=== PATIENT | male | born 1945 | race Caucasian/White ===

== ENCOUNTER 2017-10-31 02:51 | Emergency (ER) | payer MEDICARE ==
[2017-02-27 08:41] VITALS: Ht 165.1 cm; Wt 100.0 kg
[~2017-10-31] VITALS: Ht 165.1 cm; Wt 100.0 kg
[~2017-10-31 02:51] MED LIST changes: -CHOL500045 PO; -CYCL10TA29 PO; -LINA290C PO; -MORP-181 PO; -PRAM1.5T23 PO
--- NOTE | 2017-10-31 02:59 | ER Report ---
History and Physical Time Seen By MD: 02:59 (GUERO COBURN DO) HPI/ROS CHIEF COMPLAINT: Back pain HISTORY OF PRESENT ILLNESS: 71-year-old male presents to the ER complaining of severe back pain. Patient normally has chronic back pain. He has a history of discitis from March 2017. His transfer down [facility]. Patient was done at [facility] yesterday with anticipated back surgery. He has previous disc collapse and discitis with spinal stenosis. 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 They reported that his INR was not low enough to proceed with surgery. He shows laboratory work with an INR of 1.4 and a PT 16.6 He was discharged to come back home and returned on for surgery. Patient notes increasing back pain for one day. He is unable to move. He is taking his normal MS Contin and Percocet for breakthrough pain. He is unable to reduce his pain beyond 10/10. It's no fever or chills. This is very similar to the previous presentation when he had discitis back in March 2017. Patient denies dysuria, productive cough or dysuria. Patient notes no incontinence. He notes weakness in his legs that is chronic. He notes no worsening of his symptoms in the lower externally. He has contact information for brain and spine surgery at [facility] Dr Nathan Rucker/ Francia Levy nurse practitioner [phone] REVIEW OF SYSTEMS: Respiratory: No cough, no dyspnea. Cardiovascular: No chest pain, no palpitations. Gastrointestinal: No vomiting, no abdominal pain. Musculoskeletal: As above (GUERO COBURN DO) Allergies: Coded Allergies: hydromorphone (Verified Adverse Reaction, Intermediate, AGGRESSION, ALTERED MENTAL STATUS, 03/07/17) Home Meds Reported Medications Cholecalciferol (Vitamin D3) (VITAMIN D) 5,000 Unit Tablet, 5000 UNIT PO QDAY 10/31/17 Oxycodone Hcl/Acetaminophen (PERCOCET 5-325 MG TABLET) 1 Each Tablet, 1 EACH PO QID Y for PAIN, TAB 10/31/17 Morphine Sulfate (MS CONTIN) 15 Mg Tablet.er, 15 MG PO BID 10/31/17 Pramipexole Di-Hcl (MIRAPEX) 1.5 Mg Tablet, 1.5 MG PO QDAY 10/31/17 Linaclotide (LINZESS) 290 Mcg Capsule, 290 MCG PO QDAY, CAPSULE 10/31/17 Cyclobenzaprine Hcl (CYCLOBENZAPRINE HCL) 10 Mg Tablet, 5 MG PO TID Y for SPASMS , #9 TAB 10/31/17 Levothyroxine Sodium (LEVOTHYROXINE SODIUM) 100 Mcg Tablet, 200 MCG PO QDAY, TAB 02/28/17 Trazodone Hcl (TRAZODONE HCL) 50 Mg Tablet, 50-100 MG PO QHS Y for SLEEP 02/27/17 Gabapentin (GABAPENTIN) 300 Mg Capsule, 300 MG PO QDAY, CAPSULE 02/27/17 [place]-3 Fatty Acids (FISH OIL) 300 Mg Capsule, 300 MG PO every 3rd day, CAPSULE 07/17/16 Tamsulosin Hcl (FLOMAX) 0.4 Mg Cap.er.24h, 0.4 MG PO DAILY, CAP 12/01/15 Vit B1 Mn/B2/B3/B5/B6/B12/C/Fa (B COMPLEX WITH VITAMIN C TAB) 1 Each Tablet, 1 TAB PO DAILY, #90 10/21/14 Losartan/Hydrochlorothiazide (LOSARTAN-HCTZ 100-25 MG TAB) 1 Each Tablet, 1 TAB PO DAILY, #90 08/26/14 Discontinued Reported Medications Amoxicillin/Potassium Clav (AUGMENTIN 500-125 TABLET) 1 Each Tablet, 1 TAB PO Q8H for 7 Days, #21 TAB 03/04/17 Diclofenac Sodium 1% Gel (VOLTAREN 1% GEL) 100 Gm Gel..gram. 02/28/17 Cholecalciferol (Vitamin D3) (VITAMIN D3) 400 Unit Tablet, 400 UNIT PO DAILY 02/28/17 Warfarin Sodium (WARFARIN SODIUM) 5 Mg Tablet, 7.5 MG PO 3 days a week, TAB 02/28/17 Potassium Chloride (POTASSIUM CHLORIDE) 10 Meq Capsule.er, 10 MEQ PO DAILY 02/28/17 Oxycodone Hcl/Acetaminophen (PERCOCET 7.5-325 MG TABLET) 1 Each Tablet, 1 EACH PO Q6H Y for pain, TAB 02/28/17 Terbinafine Hcl (LAMISIL) 250 Mg Tablet, 250 MG PO DAILY PATIENT TO TAKE FOR 3 MONTHS 02/27/17 Vitamin A (VITAMIN A) 8,000 Unit Capsule, PO, CAPSULE 07/17/16 Pramipexole Di-Hcl (PRAMIPEXOLE DIHYDROCHLORIDE) 1.5 Mg Tablet, 2 TAB PO DAILY, #180 08/26/14 Warfarin Sodium (COUMADIN) 5 Mg Tablet, 5 MG PO 4 days a week 07/24/14 Past Medical/Surgical History PAST MEDICAL AND SURGICAL HISTORY The patient has an extensive past medical history including secondary polycythemia, DVT of the right leg, obesity, hypertension, hypogonadism, sleep apnea, peripheral neuropathy, type 2 diabetes, hypercholesterolemia, metabolic syndrome, restless leg syndrome, osteoarthritis with bilateral knee replacements , cataracts with lens replacement, hypothyroidism, severe infection with diskitis and possibly osteomyelitis in 2017. (GUERO COBURN DO) Reviewed Nurses Notes: Yes Old Medical Records Reviewed: Yes (GUERO COBURN DO) Hx Smoking: No Exposure to Second Hand Smoke?: No Hx Substance Use Disorder: No Hx Alcohol Use: Yes (rare) (GUERO COBURN DO) Constitutional Vital Sign - Last 24 Hours 10/31/17 10/31/17 10/31/17 10/31/17 02:56 03:00 03:05 03:10 Temp 97.1 Pulse 82 82 79 76 Resp 22 B/P (MAP) 138/68 Pulse Ox 96 91 97 96 O2 Delivery Room Air 10/31/17 10/31/17 10/31/17 10/31/17 03:15 03:20 03:25 03:30 Pulse ??? 73 66 70 B/P (MAP) 138/68 (91) Pulse Ox 93 94 92 96 10/31/17 10/31/17 10/31/17 10/31/17 03:35 03:40 03:45 03:50 Pulse 69 ??? 62 57 Pulse Ox 97 97 96 98 10/31/17 10/31/17 10/31/17 10/31/17 03:51 03:55 04:00 04:05 Pulse 73 ??? 65 B/P (MAP) 176/81 (112) Pulse Ox 99 100 100 O2 Flow Rate 2.0 10/31/17 10/31/17 10/31/17 10/31/17 04:05 04:10 04:15 04:20 Pulse 59 66 65 Pulse Ox 100 99 99 O2 Flow Rate 4.0 10/31/17 10/31/17 10/31/17 10/31/17 04:25 04:30 04:35 04:40 Pulse 62 ??? 66 60 B/P (MAP) 129/66 (87) Pulse Ox 100 99 99 99 10/31/17 10/31/17 10/31/17 10/31/17 04:45 04:50 04:55 05:00 Pulse 58 63 75 ??? B/P (MAP) 164/86 (112) Pulse Ox 99 99 100 100 10/31/17 10/31/17 10/31/17 10/31/17 05:15 05:30 05:45 06:00 Pulse 64 ??? 82 ??? B/P (MAP) 136/70 (92) 187/97 (127) Pulse Ox 92 98 98 96 10/31/17 10/31/17 10/31/17 10/31/17 06:15 06:20 06:30 06:35 Pulse 67 76 68 B/P (MAP) 156/85 (108) Pulse Ox 97 99 83 10/31/17 10/31/17 10/31/17 10/31/17 07:51 07:56 08:00 08:11 Pulse 63 B/P (MAP) 153/79 (103) 140/67 (91) Pulse Ox 98 98 10/31/17 10/31/17 10/31/17 10/31/17 08:26 08:30 08:41 08:56 Pulse 56 63 55 B/P (MAP) 132/61 (84) Pulse Ox 97 98 98 (YURIY IBRAHIM MD) Physical Exam General Appearance: The patient is alert, has no immediate need for airway protection and no current signs of toxicity. Moderate distress HEENT: Pupils equal and round no injection. Oropharynx without redness or exudate, mucous. Membranes are moist Respiratory: Chest is non tender, lungs are clear to auscultation. No wheezing or rails Cardiac: regular rate and rhythm Gastrointestinal: Abdomen is soft and non tender, no masses, bowel sounds normal. Musculoskeletal: Neck: Neck is supple and non tender. Back: There is no fluctuance, erythema or warmth. There is moderate tenderness in the midline at approximately T12. There are surgical echevarria on the patient's back from his previous visit with anticipated surgery Extremities have full range of motion and are non tender. No edema, no calf tenderness Skin: No rashes or lesions. DIFFERENTIAL DIAGNOSIS: After history and physical exam differential diagnosis was considered for back pain including but not limited to muscular pain, herniated disc, spine fracture, discitis, intra-abdominal causes and urinary tract infection. (GUERO COBURN DO) Medical Decision Making Data Points Result Diagram: 10/31/1731110/31/17311 Laboratory Hematology Test 10/31/17 03:12 10/31/17 05:07 Red Blood Count 5.51 M/uL (4.00-5.60) Mean Corpuscular Volume 82.1 fL (80.0-96.0) Mean Corpuscular Hemoglobin 27.7 pg (26.0-33.0) Mean Corpuscular Hemoglobin Concent 33.8 g/dL (32.0-36.0) Red Cell Distribution Width 16.3 % (11.5-14.5) Mean Platelet Volume 8.6 fL (7.2-11.1) Neutrophils (%) (Auto) 80.7 % (39.4-72.5) Lymphocytes (%) (Auto) 10.6 % (17.6-49.6) Monocytes (%) (Auto) 7.1 % (4.1-12.4) Eosinophils (%) (Auto) 0.8 % (0.4-6.7) Basophils (%) (Auto) 0.8 % (0.3-1.4) Nucleated RBC Relative Count (auto) 0.0 /100WBC Neutrophils # (Auto) 8.0 K/uL (2.0-7.4) Lymphocytes # (Auto) 1.1 K/uL (1.3-3.6) Monocytes # (Auto) 0.7 K/uL (0.3-1.0) Eosinophils # (Auto) 0.1 K/uL (0.0-0.5) Basophils # (Auto) 0.1 K/uL (0.0-0.1) Nucleated RBC Absolute Count (auto) 0.00 K/uL Erythrocyte Sedimentation Rate 31 mm/HOUR (0-20) Prothrombin Time 15.0 seconds (12.0-14.4) Prothromb Time International Ratio 1.17 Sodium Level 136 mmol/L (137-145) Potassium Level 3.4 mmol/L (3.5-5.0) Chloride Level 100 mmol/L (98-107) Carbon Dioxide Level 24 mmol/L (22-30) Blood Urea Nitrogen 13 mg/dl (9-21) Creatinine 0.90 mg/dl (0.66-1.25) Glomerular Filtration Rate Calc > 60.0 Random Glucose 115 mg/dl (75-110) Calcium Level 9.4 mg/dl (8.4-10.2) Total Bilirubin 1.4 mg/dl (0.2-1.3) Aspartate Amino Transf (AST/SGOT) 21 U/L (0-35) Alanine Aminotransferase (ALT/SGPT) 26 U/L (0-56) Alkaline Phosphatase 94 U/L (0-126) C-Reactive Protein 6.0 mg/dl (<1.0) Total Protein 7.8 gm/dl (6.3-8.2) Albumin 4.1 g/dl (3.5-5.0) Urine Color Yellow Urine Clarity Clear Urine pH 5.0 pH (4.8-9.5) Urine Specific [place] 1.013 Urine Protein Negative mg/dL (NEGATIVE) Urine Glucose (UA) Negative mg/dL (NEGATIVE) Urine Ketones Negative mg/dL (NEGATIVE) Urine Blood Negative (NEGATIVE) Urine Nitrite Negative (NEGATIVE) Urine Bilirubin Negative (NEGATIVE) Urine Urobilinogen Negative mg/dL (0.2-1.9) Urine Leukocyte Esterase Negative (NEGATIVE) Urine RBC None /HPF (0-2/HPF) Urine WBC 2 /HPF (0-5/HPF) Urine Squamous Epithelial Cells None /LPF (</=FEW) Urine Bacteria Negative /HPF (NONE-FEW) Urine Mucus Few /HPF (NONE-FEW) Chemistry Test 10/31/17 03:12 10/31/17 05:07 White Blood Count 9.9 k/uL (4.5-11.0) Red Blood Count 5.51 M/uL (4.00-5.60) Hemoglobin 15.3 g/dL (14.0-18.0) Hematocrit 45.2 % (42.0-52.0) Mean Corpuscular Volume 82.1 fL (80.0-96.0) Mean Corpuscular Hemoglobin 27.7 pg (26.0-33.0) Mean Corpuscular Hemoglobin Concent 33.8 g/dL (32.0-36.0) Red Cell Distribution Width 16.3 % (11.5-14.5) Platelet Count 308 K/uL (150-450) Mean Platelet Volume 8.6 fL (7.2-11.1) Neutrophils (%) (Auto) 80.7 % (39.4-72.5) Lymphocytes (%) (Auto) 10.6 % (17.6-49.6) Monocytes (%) (Auto) 7.1 % (4.1-12.4) Eosinophils (%) (Auto) 0.8 % (0.4-6.7) Basophils (%) (Auto) 0.8 % (0.3-1.4) Nucleated RBC Relative Count (auto) 0.0 /100WBC Neutrophils # (Auto) 8.0 K/uL (2.0-7.4) Lymphocytes # (Auto) 1.1 K/uL (1.3-3.6) Monocytes # (Auto) 0.7 K/uL (0.3-1.0) Eosinophils # (Auto) 0.1 K/uL (0.0-0.5) Basophils # (Auto) 0.1 K/uL (0.0-0.1) Nucleated RBC Absolute Count (auto) 0.00 K/uL Erythrocyte Sedimentation Rate 31 mm/HOUR (0-20) Prothrombin Time 15.0 seconds (12.0-14.4) Prothromb Time International Ratio 1.17 Glomerular Filtration Rate Calc > 60.0 Calcium Level 9.4 mg/dl (8.4-10.2) Total Bilirubin 1.4 mg/dl (0.2-1.3) Aspartate Amino Transf (AST/SGOT) 21 U/L (0-35) Alanine Aminotransferase (ALT/SGPT) 26 U/L (0-56) Alkaline Phosphatase 94 U/L (0-126) C-Reactive Protein 6.0 mg/dl (<1.0) Total Protein 7.8 gm/dl (6.3-8.2) Albumin 4.1 g/dl (3.5-5.0) Urine Color Yellow Urine Clarity Clear Urine pH 5.0 pH (4.8-9.5) Urine Specific [place] 1.013 Urine Protein Negative mg/dL (NEGATIVE) Urine Glucose (UA) Negative mg/dL (NEGATIVE) Urine Ketones Negative mg/dL (NEGATIVE) Urine Blood Negative (NEGATIVE) Urine Nitrite Negative (NEGATIVE) Urine Bilirubin Negative (NEGATIVE) Urine Urobilinogen Negative mg/dL (0.2-1.9) Urine Leukocyte Esterase Negative (NEGATIVE) Urine RBC None /HPF (0-2/HPF) Urine WBC 2 /HPF (0-5/HPF) Urine Squamous Epithelial Cells None /LPF (</=FEW) Urine Bacteria Negative /HPF (NONE-FEW) Urine Mucus Few /HPF (NONE-FEW) Coagulation Test 10/31/17 03:12 Prothrombin Time 15.0 seconds Prothromb Time International Ratio 1.17 Urinalysis Test 10/31/17 05:07 Urine Color Yellow Urine Clarity Clear Urine pH 5.0 pH (4.8-9.5) Urine Specific [place] 1.013 Urine Protein Negative mg/dL (NEGATIVE) Urine Glucose (UA) Negative mg/dL (NEGATIVE) Urine Ketones Negative mg/dL (NEGATIVE) Urine Blood Negative (NEGATIVE) Urine Nitrite Negative (NEGATIVE) Urine Bilirubin Negative (NEGATIVE) Urine Urobilinogen Negative mg/dL (0.2-1.9) Urine Leukocyte Esterase Negative (NEGATIVE) Urine RBC None /HPF (0-2/HPF) Urine WBC 2 /HPF (0-5/HPF) Urine Squamous Epithelial Cells None /LPF (</=FEW) Urine Bacteria Negative /HPF (NONE-FEW) Urine Mucus Few /HPF (NONE-FEW) (YURIY IBRAHIM MD) EKG/Imaging Imaging X-ray: Single view portable chest x-ray was obtained. I viewed the images myself on the PACS system. My interpretation of the images is: No infiltrate, no effusion, normal mediastinum. The radiologist interpretation had no clinically significant variation from this interpretation. X-ray: Single view right shoulder was obtained. I viewed the images myself on the PACS system. My interpretation of the images is: No metallic foreign bodies which would prohibit an MRI from being performed. The radiologist interpretation had no clinically significant variation from this interpretation. (GUERO COBURN DO) ED Course/Re-evaluation Clinical Indication for ER IV: Hydration, IV Access ED Course Patient was admitted to an examination room. H&P was done. The differential diagnoses was considered. Patient with a history of chronic back problems with degenerative disc disease, located by discitis in 03/19 and was transferred down [facility] for IV antibiotics and further evaluation by spine surgery. Patient was treated with IV morphine and Zofran. Diagnostic studies show a white blood cell count of 9000. There is 80% neutrophils noted. A sedimentation rate is noted to be 32 2 which is approximately baseline for this patient. On comparison to his previous sedimentation rate. When he had discitis is limitation rate was 62. Patient still with significant back pain with movement. We will proceed to MRI to rule out discitis. Turned Over The care of the patient was turned over to Dr. Ibrahim. Dr. Coburn I authorize my typed signature that I authenticated this report. (GUERO COBURN DO) ED Course ED clinical course medical decision making 71-year-old male with a significant MRI results demonstrating multilevel discitis osteomyelitis cord compression will be transferred to [facility] [place] spoke to neurosurgery [facility] have him on the schedule for procedure tomorrow patient given pain medications were not give antibiotics this time nodosum when he arrives Decision to Disposition Date: Oct 31, 2017 Decision to Disposition Time: 09:08 (YURIY IBRAHIM MD) Depart Departure Latest Vital Signs Vital Signs Date Time Temp Pulse Resp B/P (MAP) Pulse Ox O2 Delivery O2 Flow Rate FiO2 10/31/17 08:56 55 98 10/31/17 08:30 132/61 (84) 10/31/17 04:05 4.0 10/31/17 02:56 97.1 22 Room Air (YURIY IBRAHIM MD) Impression: Primary Impression: Chronic low back pain Additional Impressions: Degenerative disc disease, lumbar History of discitis Condition: Improved Disposition: XFER TO ACUTE CARE HOSPITAL Referrals: ROSANA CARROLL (PCP) Problem Qualifiers Primary Impression: Chronic low back pain Back pain laterality: midline Sciatica presence: without sciatica Qualified Codes: M54.5 - Low back pain; G89.29 - Other chronic pain GUERO COBURN DO Oct 31, 2017 02:59 YURIY IBRAHIM MD Oct 31, 2017 09:08
[2017-10-31] MEDS ORDERED: NS(*) 0.9% 1000 ML BAG 1,000 ML IV ONE ×2 (03:07→05:00)
[2017-10-31] MEDS ORDERED: ONDANSETRON 4 MG/2 ML VIAL IVP ONE (03:10)
[2017-10-31] MEDS ORDERED: MORPHINE 10 MG/ML SYR IVP ONE ×3 (03:10→05:00)
[2017-10-31 03:30] LABS: PLATELET COUNT, AUTOMATED 308 K/uL (150-450)
[2017-10-31 03:31] LABS: INR 1.17
[2017-10-31] MEDS ORDERED: PRAM1.5T23 PO (03:48)
[2017-10-31] MEDS ORDERED: MORP-181 PO (03:48)
[2017-10-31] MEDS ORDERED: LINA290C PO (03:48)
[2017-10-31] MEDS ORDERED: CYCL10TA29 PO (03:48)
[2017-10-31] MEDS ORDERED: OXYC-865 PO (03:50)
[2017-10-31] MEDS ORDERED: CHOL500045 PO (03:50)
--- NOTE | 2017-10-31 06:11 | RADIOLOGY IMAGING REPORT ---
FACILITY: [facility] [place] PATIENT NAME: Parish Juares : 1945 MR: [id number] V: [id number] EXAM DATE: ORDERING PHYSICIAN: GUERO ROBERTO TECHNOLOGIST: [place] [facility] [place] Ju[place] : 1945 Visit/Account:[id number] Date of Sevice: 10/31/2017 EXAMINATION: Portable chest radiograph single view at 0544 hours HISTORY: Back pain, chills, rule out pneumonia. COMPARISON: 03/07/2017. FINDINGS: 2 portable AP views of the chest are obtained. Lines/tubes: None. Lungs/pleura: No focal consolidation or pleural effusion. Heart: Negative. Mediastinum: Negative. Bony structures/body wall: Negative. IMPRESSION: No radiographic evidence of acute cardiopulmonary disease or pneumonia. Report Dictated By: Sarah Lombardo MD at 10/31/2017 6:05 AM Report E-Signed By: Sarah Lombardo MD at 10/31/2017 6:06 AM WSN:[id number]
--- NOTE | 2017-10-31 06:47 | RADIOLOGY IMAGING REPORT ---
FACILITY: PATIENT NAME: Parish Juares : 1945 MR: [id number] V: [id number] EXAM DATE: ORDERING PHYSICIAN: GUERO ROBERTO TECHNOLOGIST: [place] [facility] [place]: Parish Juares : 1945 Visit/Account:[id number] Date of Sevice: 10/31/2017 EXAMINATION: Right shoulder radiograph single view HISTORY: Pre-MRI screening. Patient states he has a vascular stent in his right shoulder region, but he has no idea what the device is. This area is not entirely included on recent chest x-ray. COMPARISON: Chest radiograph from 10/31/2017. FINDINGS: Single AP view of the right shoulder is obtained. There is no radiopaque or metallic vascular stent in the right shoulder region. No other metallic for eign body. Bony structures are intact. IMPRESSION: No radiopaque stent or metallic foreign body in the right shoulder. No MRI contraindication in this a andrew. Report Dictated By: Sarah Lombardo MD at 10/31/2017 6:37 AM Report E-Signed By: Sarah Lombardo MD at 10/31/2017 6:43 AM WSN:[id number]
[2017-10-31] MEDS ORDERED: GADOBENATE 529MG/1ML 15ML VIAL IVP ONE (07:11)
--- NOTE | 2017-10-31 08:27 | RADIOLOGY IMAGING REPORT ---
FACILITY: PATIENT NAME: Parish Juares : 1945 MR: [id number] V: [id number] EXAM DATE: ORDERING PHYSICIAN: GUERO ROBERTO TECHNOLOGIST: [facility] Patient: Parish Juares : 1945 Visit/Account:[id number] Date of Sevice: 10/31/2017 EXAMINATION: Lumbar spine MRI without IV contrast Lumbar spine MRI with IV contrast HISTORY: Severe back pain COMPARISON: Lumbar spine MRI dated 03/06/2017. TECHNIQUE: Multi-planar, multi-sequence lumbar spine MRI was performed before and after IV contrast. CONTRAST: 15 mL of IV MultiHance FINDINGS: Alignment: Mild convex leftward curvature. Minimal retrolisthesis of L3 over L4. Vertebral marrow signal: Confluent intervertebral disc and surrounding bone marrow edema at T11-T12 with partial collapse of t he T11 and T12 vertebral bodies and 7 mm of retropulsion, consistent with discitis/osteomyelitis. Th ere is also abnormal bone marrow signal in the posterior elements and possibly in the ribs at these l evels. Contrast enhancement surrounding the T11-T12 disc space and in the T11 and T12 vertebral bodies. Epi dural enhancement anteriorly posterior to the T11 and T12 vertebral bodies. No definite drainable fl uid collection, although this area is not included on the axial sequences. Mild edema and enhancement in the posterior L1 vertebral body made represent an additional site of in fection. Intervertebral disc edema at several additional levels is slightly worsened compared with 03/06/2017. Stable 3.0 x 2.6 x 2.6 cm intraosseous hemangioma in the left side of the L4 vertebral body. Degenerative endplate changes at multiple levels. Distal thoracic cord: Severe spinal canal stenosis at T11-T12 secondary to discitis-osteomyelitis wit h retropulsion. The spinal cord is not well-seen in this location, however there is no definite abno rmal signal in the spinal cord. Conus: The cauda equina is displaced medially and posteriorly at L2 and L3 suggestive of subdural or subarachnoid fluid collections (series 5, image 6; series 5, image 11). These do not look like epidu ral fluid collections. Cauda equina: The cauda equina is displaced medially and posteriorly at L2 and L3 suggesting subdural or subarachnoid fluid collections (series 5, image 6; series 5, image 11). These do not look like e pidural fluid collections. Redundant nerve roots below L4-L5. No definite abnormal nerve root enhan cement. Paravertebral soft tissues: No definite paraspinal abscess, although the infected level was not inclu ded on axial sequences. Visualized abdominal and pelvic structures: Small bilateral renal cysts. Enhancement pattern: Otherwise negative. Disc Spaces: Lower thoracic spine: T11-T12 discitis-osteomyelitis. Disc bulge and facet hypertrophy at T12-L1 wit h no significant stenosis. L1-2: Moderate disc height loss with small circumferential disc bulge. Mild facet hypertrophy and li gamentum flavum thickening. No significant spinal canal stenosis. Moderate bilateral neural foramin al stenosis. No significant change. L2-3: Mild disc height loss and circumferential disc bulge. Moderate facet hypertrophy and ligamentu m flavum thickening. Mild spinal canal stenosis. Moderate bilateral neural foraminal stenosis. No significant change. L3-4: Moderate disc height loss and circumferential disc osteophyte complex. Moderate facet hypertro phy and ligamentum flavum thickening. Moderate spinal canal stenosis. Moderate left and severe righ t neural foraminal stenosis. No significant change. L4-5: Moderate disc height loss with circumferential disc osteophyte complex, facet hypertrophy, and ligamentum flavum thickening. Severe spinal canal stenosis. Severe bilateral neural foraminal steno sis. No significant change. L5-S1: Moderate disc height loss with circumferential disc osteophyte complex, facet hypertrophy, and ligamentum flavum thickening. Mild spinal canal stenosis. Severe bilateral neural foraminal stenos is. No significant change. IMPRESSION:1. T11-T12 discitis-osteomyelitis with partial collapse of the vertebral bodies and 7 mm of retropulsion causing severe spinal canal stenosis. There is also abnormal signal in the posterior elements and possibly the ribs at these levels suspicious for extensive osteomyelitis. Mild edema a nd enhancement in the posterior L1 vertebral body may represent an additional site of osteomyelitis. 2. There is likely spinal cord compression at T11-T12. The spinal cord is not well seen, however th ere is no definite abnormal signal in the spinal cord. 3. Extensive anterior epidural enhancement at T11 and T12 may represent phlegmon or vascular engorge ment. No definite epidural or paraspinal fluid collection. 4. The cauda equina is displaced medially and posteriorly at L2 and L3 suggesting anterior subdural or subarachnoid fluid collections (series 5, image 6; series 5, image 11). 5. Axial images were not obtained through the T11-T12 segment secondary to patient discomfort during the exam. Consider repeat of the axial T2 and axial postcontrast sequences through this section to better evaluate for signs of epidural and paraspinal abscess. 6. Multilevel degenerative disc disease and facet hypertrophy with mild convex leftward curvature an d minimal retrolisthesis of L3 over L4. No significant interval change. Results were called to Anshul Ortega at 10/31/2017 8:19 AM. Report Dictated By: Josse Del Valle MD at 10/31/2017 7:52 AM Report E-Signed By: Josse Del Valle MD at 10/31/2017 8:23 AM WSN:[id number]
[2017-10-31] MEDS ORDERED: fentaNYL CITR 100 MCG/2 ML AMP IVP ONE (09:10)
[2017-10-31] MEDS ORDERED: DIAZEPAM 10 MG/2 ML SYR IVP ONE (10:40)
[2017-10-31 11:30] VITALS: BP 165/93
== END 2017-10-31 11:51 | disposition short-term general hospital (02) ==
LOC: ER 03:03
DX: G89.29 Other chronic pain (principal); M54.5 Low back pain; M51.36 Other intervertebral disc degeneration, lumbar region; Z86.718 Personal history of other venous thrombosis and embolism; Z79.01 Long term (current) use of anticoagulants
CPT/HCPCS: 36415; 71045; 72158; 73020; 81001; 85025; 85610; 85651; 86140; 87040; 96361; 96374; 96375; 96376; 99285; A9577; J2270; J2405; J3010; J3360; J7030; 82040; 82247; 82310; 82374; 82435; 82565; 82947; 84075; 84132; 84155; 84295; 84450; 84460; 84520

== ENCOUNTER → 2017-10-31 | Outpatient (CLI) | payer MEDICARE ==
[2017-02-27 08:41] VITALS: BMI 40.7
[~2017-10-31] MED LIST: AMIT-108; AMOX-556 PO; CHOL10005 PO; CHOL400T29 PO; CHOL500045 PO; CIPR-326 PO; CLIN60GE TP; CYCL10TA29 PO; DICL100G39; ENOX120D5 SQ; GABA-488 PO; GABA-549 PO; KET10 PO; LEVO-3 PO; LEVO25TA64 PO; LINA290C PO; LOR5/325 PO; LOSA-54 PO; MORP-181 PO; OMEG300C PO; ONDA4TAB PO; OXYC-373; OXYC-865 PO; OXYC-869 PO; OXYC15TA PO; PER; PER PO; POTA10CA40 PO; PRAM0.7512 PO; PRAM1.5T23 PO; RIVA15TA PO; TAM4 PO; TAMS0.4C25 PO; TERB250T63 PO; TRAZ-156 PO; VIT1TABL77 PO; WARF-1 PO; WARF5TAB23 PO; [UNRECOGNIZED DRUG - CODE] PO; [UNRECOGNIZED DRUG - CODE] PO; [UNRECOGNIZED DRUG - OTHER]
== END ==
LOC: AMB 11:42
PROVIDERS: ATTEND Nurse Practitioner
DX: M54.9 Dorsalgia, unspecified (principal); M46.36 Infection of intervertebral disc (pyogenic), lumbar region
CPT/HCPCS: A0425; A0426

== ENCOUNTER 2017-12-18 16:00 | Outpatient (RCR) | payer MEDICARE ==
[2017-02-27 08:41] VITALS: BMI 40.7
[2017-11-29 10:06] VITALS: BP 115/71
[2017-11-29] MEDS: cefTRIAXone 2 GM VIAL IVP SCH (10:06)
[2017-11-30] MEDS: cefTRIAXone 2 GM VIAL IVP SCH (08:49)
[2017-11-30 08:52] VITALS: BP 130/79
[2017-12-01] MEDS: cefTRIAXone 2 GM VIAL IVP SCH (11:01)
[2017-12-02] MEDS: cefTRIAXone 2 GM VIAL IVP SCH (10:30)
[2017-12-02 10:39] VITALS: BP 132/99
[2017-12-03 10:54] VITALS: BP 109/74
[2017-12-04 10:59] VITALS: BP 139/74
[2017-12-04] MEDS: cefTRIAXone 2 GM VIAL IVP SCH (11:00)
[2017-12-05 11:08] VITALS: BP 119/68
[2017-12-05] MEDS: cefTRIAXone 2 GM VIAL IVP SCH (12:12)
[2017-12-06 11:05] VITALS: BP 136/83
[2017-12-06] MEDS: cefTRIAXone 2 GM VIAL IVP SCH (11:21)
[2017-12-07] MEDS: cefTRIAXone 2 GM VIAL IVP SCH (10:54)
[2017-12-07 10:56] VITALS: BP 138/78
[2017-12-08] MEDS: cefTRIAXone(*) 2 GM VIAL 2 GM in NS(*) 0.9% 100 ML ADDVANT BAG 100 ML IVPB SCH (09:17)
[2017-12-08] MEDS: NS(*) 0.9% 100 ML BAG 100 ML IVPB PRN (09:17)
[2017-12-08 09:30] VITALS: BP 107/73
[2017-12-09] MEDS: NS(*) 0.9% 100 ML BAG 100 ML IVPB PRN (08:53)
[2017-12-09] MEDS: cefTRIAXone(*) 2 GM VIAL 2 GM in NS(*) 0.9% 100 ML ADDVANT BAG 100 ML IVPB SCH (08:53)
[2017-12-09 10:00] VITALS: BP 125/71
[2017-12-10] MEDS: NS(*) 0.9% 100 ML BAG 100 ML IVPB PRN (11:12)
[2017-12-10] MEDS: cefTRIAXone(*) 2 GM VIAL 2 GM in NS(*) 0.9% 100 ML ADDVANT BAG 100 ML IVPB SCH (11:12)
[2017-12-10 11:43] VITALS: BP 125/73
[2017-12-11] MEDS: NS(*) 0.9% 100 ML BAG 100 ML IVPB PRN (11:07)
[2017-12-11] MEDS: cefTRIAXone(*) 2 GM VIAL 2 GM in NS(*) 0.9% 100 ML ADDVANT BAG 100 ML IVPB SCH (11:07)
[2017-12-11 11:16] VITALS: BP 143/84
[2017-12-12] MEDS: cefTRIAXone(*) 2 GM VIAL 2 GM in NS(*) 0.9% 100 ML ADDVANT BAG 100 ML IVPB SCH (11:19)
[2017-12-12 11:20] VITALS: BP 128/71
[2017-12-13 14:09] VITALS: BP 128/71
[~2017-12-18 16:00] MED LIST changes: +ALTEPLASE RECOMB 2 MG VIAL IVP PRN; +CHOL500045 PO; +CYCL10TA29 PO; +DEXTROSE 5%(*) 100 ML BAG 100 ML IVPB PRN; +LIDOCAINE/SOD BICARB 8.4% SYR ID PRN; +LINA290C PO; +MORP-181 PO; +NS(*) 0.9% 100 ML BAG 100 ML IVPB PRN; +NS(*) 0.9% 500 ML BAG 500 ML IV PRN; +PRAM1.5T23 PO; +WATER FOR INJ,STERILE 20 ML IVP PRN; +cefTRIAXone 2 GM VIAL IVP SCH
[2017-12-18 16:35] LABS: PLATELET COUNT, AUTOMATED 378 K/uL (150-450)
== END 2017-12-28 11:48 | disposition home or self-care (01) ==
LOC: SPU 16:00
PROVIDERS: ATTEND Internal Medicine
DX: S24.153A Other incomplete lesion at T7-T10 level of thoracic spinal cord, initial encounter (principal); S22.000G Wedge compression fracture of unspecified thoracic vertebra, subsequent encounter for fracture with delayed healing; G06.2 Extradural and subdural abscess, unspecified; M86.9 Osteomyelitis, unspecified; I82.531 Chronic embolism and thrombosis of right popliteal vein
CPT/HCPCS: 85025; 86141; 96365; 96374; J0696; J1642; J7050; 82040; 82247; 82310; 82374; 82435; 82565; 82947; 84075; 84132; 84155; 84295; 84450; 84460; 84520

== ENCOUNTER → 2018-02-28 | Outpatient (CLI) | payer MEDICARE ==
[2017-02-27 08:41] VITALS: BMI 40.7
[~2018-02-28] MED LIST changes: -ALTEPLASE RECOMB 2 MG VIAL IVP PRN; -DEXTROSE 5%(*) 100 ML BAG 100 ML IVPB PRN; -LIDOCAINE/SOD BICARB 8.4% SYR ID PRN; -NS(*) 0.9% 100 ML BAG 100 ML IVPB PRN; -NS(*) 0.9% 500 ML BAG 500 ML IV PRN; -WATER FOR INJ,STERILE 20 ML IVP PRN; -cefTRIAXone 2 GM VIAL IVP SCH
--- NOTE | 2018-02-28 12:25 | RADIOLOGY IMAGING REPORT ---
FACILITY: [facility] - [place] PATIENT NAME: Parish Juares : 1945 MR: [id number] V: [id number] EXAM DATE: ORDERING PHYSICIAN: YAHAIRA CLARK TECHNOLOGIST: Location: [facility] Patient: Parish Juares : 1945 Visit/Account:[id number] Date of Sevice: 02/28/2018 EXAMINATION: Thoracic and lumbar spine CT without contrast. HISTORY: Radiculopathy COMPARISON: Radiographs 08/02/2017 , lumbar spine MR October 31, 2017 TECHNIQUE: Noncontrast thoracic and lumbar spine CT performed with sagittal and coronal reformations. One of the following dose optimization techniques was utilized in the performance of this exam: autom ated exposure control; adjustment of the mA and/or kV according to patient size; or use of iterative reconstruction technique. Specific details can be referenced in the facility's radiology CT exam ope rational policy. FINDINGS: Thoracic spine: 11 rib-bearing thoracic vertebral bodies are present. No T12 ribs present. Severe T1-2 disc space degeneration. Multilevel anterior flowing ossification in keeping with benign diffuse idiopathic skeletal hyperostosis. Chronic T10 wedge compression deformity with greater than 50% anterior vertebral body height loss. Ch ronic T11 mild wedge compression deformity. Thoracic vertebral bodies are otherwise normal in height . Left-sided T10 and T11 corpectomy defect with vertebral body prosthesis. This prosthesis extends in to the upper aspect of the left T12 vertebral body. There is widening and irregularity of the T10-11 disc space. Endplate lucency surrounds the T10-11 di sc space. The widening of this disc space has decreased compared to prior MR. T10 and T11 laminectomy defects. Partial surgical absence of the T9 spinous process. Posterior fusion hardware extends from T8 through L2 with paraspinal rods and pedicle/vertebral body screws. The hardware is intact. No evidence of hardware loosening. The right T8 screw extends through the right T8 transverse process with the remainder of the screw within the right lateral paraspinal soft tissues. Severe right T9-10 and T10-11 foraminal narrowing. Moderate left T9-10 foraminal narrowing. Moderate left T8-9 and mild right T8-9 foraminal narrowing.. Right hilar calcified lymph nodes noted. Lumbar spine: Transitional lumbosacral anatomy. The lowest disc space will be described as L5-S1 for purposes of th is dictation. Posterior fusion hardware extends from the thoracic spine through L2 as described above. The hardware is intact without evidence of loosening. Moderate to severe L2-3, severe L3-4 and severe L4-5 disc space degeneration. Multilevel foraminal na rrowing most pronounced at the L3-4 and L4-5 levels. Multilevel posterior endplate spurring. Moderate L4-5 facet arthropathy. Slight convexity left lumbar scoliosis. Left L3 vertebral body hemangioma noted. IVC filter noted. Nonobstructive right renal calculus. Equivocal rectal wall thickening. IMPRESSION: 1. Transitional lumbosacral anatomy noted. The lowest disc space will be described as L5-S1 for purpo ses of this dictation. 11 rib-bearing thoracic vertebral bodies are present. 2. Posterior fusion hardware extends from T8 through L2. The hardware is intact without evidence of l oosening. Right T8 screw is partially positioned in the lateral paraspinal soft tissues. 3. T10-11 disc space irregularity and widening has decreased compared to prior lumbar spine MR, findi ngs in keeping with residua of discitis (notably this level was called T11-12 on the comparison MR). There is persistent endplate lucency surrounding this disc space which may reflect persistent disciti s. 4. Chronic T10 and T11 wedge compression deformities without definitive interval change compared to p rior MR allowing for technique differences. 5. Left T10 and T11 corpectomy defects with vertebral body prosthesis. 6. Multilevel lumbar spine degenerative disc disease and degenerative foraminal narrowing. 7. Nonspecific mild rec al wall thickening, correlation with exam may be warranted. Report Dictated By: Sal Hoffman MD at 02/28/2018 11:55 AM Report E-Signed By: Sal Hoffman MD at 02/28/2018 12:21 PM WSN:[email or web address]
--- NOTE | 2018-02-28 12:25 | RADIOLOGY IMAGING REPORT ---
FACILITY: [facility] PATIENT NAME: Parish Juares : 1945 MR: [id number] V: [id number] EXAM DATE: ORDERING PHYSICIAN: YAHAIRA CLARK TECHNOLOGIST: Location: [facility] [place] Patient: Parish Juares : 1945 Visit/Account:[id number] Date of Sevice: 02/28/2018 EXAMINATION: Thoracic and lumbar spine CT without contrast. HISTORY: Radiculopathy COMPARISON: Radiographs 08/02/2017 , lumbar spine MR October 31, 2017 TECHNIQUE: Noncontrast thoracic and lumbar spine CT performed with sagittal and coronal reformations. One of the following dose optimization techniques was utilized in the performance of this exam: autom ated exposure control; adjustment of the mA and/or kV according to patient size; or use of iterative reconstruction technique. Specific details can be referenced in the facility's radiology CT exam ope rational policy. FINDINGS: Thoracic spine: 11 rib-bearing thoracic vertebral bodies are present. No T12 ribs present. Severe T1-2 disc space degeneration. Multilevel anterior flowing ossification in keeping with benign diffuse idiopathic skeletal hyperostosis. Chronic T10 wedge compression deformity with greater than 50% anterior vertebral body height loss. Ch ronic T11 mild wedge compression deformity. Thoracic vertebral bodies are otherwise normal in height . Left-sided T10 and T11 corpectomy defect with vertebral body prosthesis. This prosthesis extends in to the upper aspect of the left T12 vertebral body. There is widening and irregularity of the T10-11 disc space. Endplate lucency surrounds the T10-11 di sc space. The widening of this disc space has decreased compared to prior MR. T10 and T11 laminectomy defects. Partial surgical absence of the T9 spinous process. Posterior fusion hardware extends from T8 through L2 with paraspinal rods and pedicle/vertebral body screws. The hardware is intact. No evidence of hardware loosening. The right T8 screw extends through the right T8 transverse process with the remainder of the screw within the right lateral paraspinal soft tissues. Severe right T9-10 and T10-11 foraminal narrowing. Moderate left T9-10 foraminal narrowing. Moderate left T8-9 and mild right T8-9 foraminal narrowing.. Right hilar calcified lymph nodes noted. Lumbar spine: Transitional lumbosacral anatomy. The lowest disc space will be described as L5-S1 for purposes of th is dictation. Posterior fusion hardware extends from the thoracic spine through L2 as described above. The hardware is intact without evidence of loosening. Moderate to severe L2-3, severe L3-4 and severe L4-5 disc space degeneration. Multilevel foraminal na rrowing most pronounced at the L3-4 and L4-5 levels. Multilevel posterior endplate spurring. Moderate L4-5 facet arthropathy. Slight convexity left lumbar scoliosis. Left L3 vertebral body hemangioma noted. IVC filter noted. Nonobstructive right renal calculus. Equivocal rectal wall thickening. IMPRESSION: 1. Transitional lumbosacral anatomy noted. The lowest disc space will be described as L5-S1 for purpo ses of this dictation. 11 rib-bearing thoracic vertebral bodies are present. 2. Posterior fusion hardware extends from T8 through L2. The hardware is intact without evidence of l oosening. Right T8 screw is partially positioned in the lateral paraspinal soft tissues. 3. T10-11 disc space irregularity and widening has decreased compared to prior lumbar spine MR, findi ngs in keeping with residua of discitis (notably this level was called T11-12 on the comparison MR). There is persistent endplate lucency surrounding this disc space which may reflect persistent disciti s. 4. Chronic T10 and T11 wedge compression deformities without definitive interval change compared to p rior MR allowing for technique differences. 5. Left T10 and T11 corpectomy defects with vertebral body prosthesis. 6. Multilevel lumbar spine degenerative disc disease and degenerative foraminal narrowing. 7. Nonspecific mild rec al wall thickening, correlation with exam may be warranted. Report Dictated By: Sal Hoffman MD at 02/28/2018 11:55 AM Report E-Signed By: Sal Hoffman MD at 02/28/2018 12:21 PM WSN:[email or web address]
== END ==
LOC: CT 06:57
PROVIDERS: ATTEND Nurse Practitioner Family
DX: M51.36 Other intervertebral disc degeneration, lumbar region (principal); M53.3 Sacrococcygeal disorders, not elsewhere classified
CPT/HCPCS: 72128; 72131

== ENCOUNTER → 2018-03-08 | Outpatient (CLI) | payer MEDICARE ==
[2017-02-27 08:41] VITALS: BMI 40.7
== END ==
LOC: MRI 02:27
PROVIDERS: ATTEND Neurological Surgery
DX: S22.000G Wedge compression fracture of unspecified thoracic vertebra, subsequent encounter for fracture with delayed healing (principal); M86.9 Osteomyelitis, unspecified; G06.2 Extradural and subdural abscess, unspecified
CPT/HCPCS: 36415; 82565

== ENCOUNTER → 2018-03-12 | Outpatient (CLI) | payer MEDICARE ==
[2017-02-27 08:41] VITALS: BMI 40.7
[2018-03-12 10:50] LABS: PLATELET COUNT, AUTOMATED 325 K/uL (150-450)
== END ==
LOC: LAB 10:33
PROVIDERS: ATTEND Internal Medicine Infectious Disease
DX: M86.9 Osteomyelitis, unspecified (principal); G06.2 Extradural and subdural abscess, unspecified
CPT/HCPCS: 36415; 82040; 82247; 82310; 82374; 82435; 82565; 82947; 84075; 84132; 84155; 84295; 84450; 84460; 84520; 85025; 86140

== ENCOUNTER → 2018-05-01 | Outpatient (RCR) | payer MEDICARE ==
[2017-02-27 08:41] VITALS: BMI 40.7
--- NOTE | 2018-02-01 17:39 | PT INITIAL EVALUATION ---
MEDICAL DIAGNOSIS: Thoracic Compression Fracture, Spinal Surgery TREATMENT DIAGNOSIS: Generalized Weakness, Spinal Surgery, Abnormality of Gait DATE OF ONSET: 01/31/18 SUBJECTIVE: Parish is a 72 year old male presenting to physical therapy following recent spinal surgery with fusion of the thoracic and lumbar spine. Secondary to a bacterial infection pt developed osteomyelitis resulting in compression fractures and discitis from T10-12. Pt underwent near complete transpedicular corpectomy of T10 and T11 on November 01, 2017 with posterior fusion from T8-L2. Pt underwent rehabilitation at [facility], followed by home health and is now looking for more intensive rehabilitation. Currently pt reports no pain in his back but does have regular nerve pain in his R foot>L on the bottom rated at 5/10. REHAB PROBLEM LIST: Increased Pain Decreased ROM Decreased Strength Impaired Transfers Decreased Endurance Decreased Balance Decreased Function Decreased ADL's Decreased Mobility Decreased Gait PREVIOUS MEDICAL HISTORY: See EMR OCCUPATION: Retired OBJECTIVE: Pt presents in a TLSO brace. ROM: Hip Mobility: WFL excluding hip flexion with moderate restrictions. Lumbar mobility: Flexion: minimally restricted, ext: moderate-severe restrictions Strength: LE MMT: Hip: Flexion:B 4-/5, Ext: B 4+/5, Abd/Add: B 4/5. Knee: Flexion: B 4/5, Ext: B 4/5, DF: B 5/5, PF: B 4-/5 Sensation: Pt reports B LE neuropathy with pain in his feet that has been there since before the surgery. Special Tests: Oswestry Low Back Disability Questionnaire: 17.5/50 Gait: Pt ambulates with a FWW with decreased foot clearance and forward trunk lean. 6 Minute Walk Test: 3 laps= 156.4 meters ASSESSMENT: Parish shows signs and symptoms consistent with generalized weakness and abnormality of gait secondary to recent spinal surgery. Physical therapy is indicated for this patient to address the above listed deficits to return pt to prior level of function with ADL's and recreational activities. Short Term Goals In 3 weeks pt will increase 6 minute walk to 3 laps with use of SPC for improved function with community and household ambulation and ADL's. In 6 weeks pt will improve B LE strength as tested by MMT to 4+/5 in all major muscle groups. In 6 weeks pt will increase Oswestry Low Back Pain Disability Index Score to < 10/50 for improved function with ADL's. In 6 weeks pt will increase 6 minute walk to 3 laps without use of AD for improved function with community and household ambulation and ADL's. Patient's Goals Pt goals to be able to walk without AD and increase strength. PLAN: Patient to be seen for Manual Therapy/STM/MET Strengthening/condition Ice/Heat Range of Motion Spinal Stabilization Ultrasound Stretching Iontophoresis Neuromuscular Re-ed Closed Chain Program Electrical Stim Posture/Body mechanics Gait Trg/Balance Trg Biofeedback Home Exercise Program Mech./Manual Traction Therapeutic Activities Pelvic Floor 3x/Week for 6 Weeks If you have any questions, comments, or concerns about this report or plan, please contact me at . Thank you, Renetta Michaels, PT, DPT, CLT MTDD
--- NOTE | 2018-02-27 14:23 | PT PLAN OF CARE ---
Physician: CELESTE Faye Patient is being seen: 3x/week Therapist: Garcia Cortez, PT, DPT Medical Diagnosis: Thoracic Compression Fracture, Spinal Surgery Treatment Diagnosis: Generalized Weakness, Spinal Surgery, Abnormality of Gait Date of Onset: 01/31/18 Date of Initial Evaluation: 01/31/18 Date patient was last seen: 02/25/18 Number of treatments: 10 Number of cancellations/No shows: 1 INTERVENTIONS: Manual Therapy/STM/MET Strengthening/condition Ice/Heat Range of Motion Spinal Stabilization Ultrasound Stretching Iontophoresis Neuromuscular Re-ed Closed Chain Program Electrical Stim Posture/Body mechanics Gait Trg/Balance Trg Biofeedback Home Exercise Program Mech./Manual Traction Therapeutic Activities Pelvic Floor GOALS: In 3 weeks pt will increase 6 minute walk to 3 laps with use of SPC for improved function with community and household ambulation and ADL's. Progressing (able to do 1.9 laps) In 6 weeks pt will improve B LE strength as tested by MMT to 4+/5 in all major muscle groups. (progressing) In 6 weeks pt will increase Oswestry Low Back Pain Disability Index Score to < 10/50 for improved function with ADL's. Not Met In 6 weeks pt will increase 6 minute walk to 3 laps without use of AD for improved function with community and household ambulation and ADL's. (unable at this point) PATIENT'S GOAL: Pt goals to be able to walk without AD and increase strength. Status of Patient's Goals: Progressing Patient Compliance: Good Prognosis: Good Reasons for continuing therapy: This is a progress note for Parish Juares. Parish continues to be concerned about his increased back pain, he has contacted his surgeon. As a result, he demonstrated an increase with his Oswestry Low Back Disability Questionnaire from 17.5/50 to 22/45. During the 6 minute walk test, he was able to ambulate 325' or 1.9 laps with two slight path deviations; however, he did not demonstrate a loss of balance. Furthermore, he has demonstrate improvements with lumbar mobility in all directions along with improvements of B LE strength. Furthermore, he has demonstrated significant improvements with gait mechanics as he has been able to reduce from FWW to SPC without any loss of balance. We will continue to improve strength, gait, endurance, and return to prior level of function. ROM: Hip Mobility: WFL excluding hip flexion with moderate restrictions. Lumbar mobility: Flexion: minimally restricted, ext: minimal-moderate restrictions Strength: LE MMT: Hip: Flexion:B 4/5, Ext: B 4+/5, Abd/Add: B 4/5. Knee: Flexion : B 4/5, Ext: B 4/5, DF: B 5/5, PF: B 4/5 Special Tests: Oswestry Low Back Disability Questionnaire: If you have any questions, please contact me at [phone]. Thank you, Garcia Cortez, PT, DPT MTDD
--- NOTE | 2018-04-16 07:36 | PT PLAN OF CARE ---
Physician: CELESTE Faye Patient is being seen: 2-3x/Week Therapist: Renetta Michaels, PT, DPT, CLT Medical Diagnosis: Thoracic Compression Fracture, Spinal Surgery Treatment Diagnosis: Generalized Weakness, Spinal Surgery, Abnormality of Gait Date of Onset: 01/31/18 Date of Initial Evaluation: 01/31/18 Date patient was last seen: 04/11/18 Number of treatments: 20 Number of cancellations/No shows: 2 INTERVENTIONS: Manual Therapy/STM/MET Strengthening/condition Ice/Heat Range of Motion Spinal Stabilization Ultrasound Stretching Iontophoresis Neuromuscular Re-ed Closed Chain Program Electrical Stim Posture/Body mechanics Gait Trg/Balance Trg Biofeedback Home Exercise Program Mech./Manual Traction Therapeutic Activities Pelvic Floor GOALS: In 3 weeks pt will increase 6 minute walk to 3 laps with use of SPC for improved function with community and household ambulation and ADL's. MET In 6 weeks pt will improve B LE strength as tested by MMT to 4+/5 in all major muscle groups. (progressing) In 6 weeks pt will increase Oswestry Low Back Pain Disability Index Score to < 10/50 for improved function with ADL's. Progressing In 6 weeks pt will increase 6 minute walk to 3 laps without use of AD for improved function with community and household ambulation and ADL's. In Progress PATIENT'S GOAL: Pt goals to be able to walk without AD and increase strength. Status of Patient's Goals: Progressing Patient Compliance: Good Prognosis: Good Reasons for continuing therapy: This is a progress note for Parish Juares. Parish shows increase in muscular function and body awareness with core stabilization. Pt shows low concern for lifting and activity precautions at home frequently resulting in lumbar soreness, but rarely at a pain level greater than 5/10. With initiation of core stabilization pt is able to perform ADL's without pain with now only lingering tightness in the back. At this time pt is progressing away from TLSO brace as well as towards time signal wirer use of SPC instead of FWW for ambulation and occasionally no AD. Further PT is indicated to continue this progression as well as help return pt to full function in ADL's without onset of lumbar pain. ROM: Hip Mobility: WFL excluding hip flexion with moderate restrictions. Lumbar mobility: Flexion: minimally restricted, ext: minimal-moderate restrictions Strength: LE MMT: Hip: Flexion:B 5/5, Ext: B 5/5, Abd/Add: B 5/5. Knee: Flexion : B 5/5, Ext: B 4+/5, DF: B 5/5, PF: B 4/5 Special Tests: Oswestry Low Back Disability Questionnaire: Gait: 6 Minute Walk Test: 3.8 [id number] feet with SPC If you have any questions, please contact me at [phone]. Thank you, Renetta Michaels, PT, DPT, CLT MTDD
[~2018-05-01] MED LIST changes: -TRAZ-156 PO; +TRAZ50TA34 PO
== END ==
LOC: PT 01-31 15:10
PROVIDERS: ATTEND Nurse Practitioner Family
DX: M54.14 Radiculopathy, thoracic region (principal); M86.9 Osteomyelitis, unspecified; S22.000A Wedge compression fracture of unspecified thoracic vertebra, initial encounter for closed fracture; T14.8XXA Other injury of unspecified body region, initial encounter; Z98.890 Other specified postprocedural states; Z86.19 Personal history of other infectious and parasitic diseases; M54.16 Radiculopathy, lumbar region; R53.1 Weakness; R26.89 Other abnormalities of gait and mobility; X58.XXXA Exposure to other specified factors, initial encounter
CPT/HCPCS: 97010; 97032; 97110; 97116; 97162; G0283

== ENCOUNTER 2018-07-09 16:02 | Emergency (ER) | payer MEDICARE ==
[2017-02-27 08:41] VITALS: Wt 117.5 kg
--- NOTE | 2018-07-09 16:12 | ER Report ---
History and Physical Time Seen By MD: 16:12 HPI/ROS CHIEF COMPLAINT: Right lower extremity swelling HISTORY OF PRESENT ILLNESS: This is a 72-year-old male who presents to the emergency department for right lower extremity swelling. Patient has had 2 back surgeries recently, both of had infections, has revision this last surgery real well, he's been in physical therapy. Today physical therapy noted that his right lower extremity is significantly larger than the left. They were concerned at the increased in size since going send him to the ER for further evaluation. Patient denies chest pain or shortness of breath. Patient does have a history of clots although he is on warfarin at this time his INR is subtherapeutic. He states his INR is 1.9, although I do not have any indication of that in our lab. Patient denies fevers or chills. No infectious process. No nausea vomiting no other complaints. REVIEW OF SYSTEMS: Constitutional: No fever, no chills. Eyes: No discharge. ENT: No sore throat. Cardiovascular: No chest pain, no palpitations. Respiratory: No cough, no shortness of breath. Gastrointestinal: No abdominal pain, no vomiting. Genitourinary: No hematuria. Musculoskeletal: As above. Skin: No rashes. Neurological: No headache. Allergies: Coded Allergies: hydromorphone (Verified Adverse Reaction, Intermediate, AGGRESSION, ALTERED MENTAL STATUS, 07/09/18) Home Meds Reported Medications Morphine Sulfate 15 Mg Er Tab (MORPHINE SULFATE 15 MG ER TAB) 15 Mg Tablet.er, 15 MG PO BID 07/09/18 Cefuroxime Axetil (CEFUROXIME) 250 Mg Tablet, 250 MG PO BID 07/09/18 Warfarin Sodium (WARFARIN SODIUM) 5 Mg Tablet, 5 MG PO DAILY 5MG 5DAYS AWEEK AND 7.5MGS 2 DAYS A WEEK 07/09/18 Oxycodone Hcl 10 Mg Tab (OXYCODONE HCL 10 MG TAB) 10 Mg Tablet, 5 MG PO BID, TAB 07/09/18 Trazodone Hcl (TRAZODONE HCL) 50 Mg Tablet, 50 MG PO QHS 07/09/18 Cholecalciferol (Vitamin D3) (VITAMIN D) 5,000 Unit Tablet, 5000 UNIT PO QDAY 10/31/17 Pramipexole Di-Hcl (MIRAPEX) 1.5 Mg Tablet, 1.5 MG PO QDAY 10/31/17 Levothyroxine Sodium (LEVOTHYROXINE SODIUM) 100 Mcg Tablet, 200 MCG PO QDAY, TAB 02/28/17 [place]-3 Fatty Acids (FISH OIL) 300 Mg Capsule, 300 MG PO every 3rd day, CAPSULE 07/17/16 Tamsulosin Hcl (FLOMAX) 0.4 Mg Cap.er.24h, 0.4 MG PO DAILY, CAP 12/01/15 Vit B1 Mn/B2/B3/B5/B6/B12/C/Fa (B COMPLEX WITH VITAMIN C TAB) 1 Each Tablet, 1 TAB PO DAILY, #90 10/21/14 Losartan/Hydrochlorothiazide (LOSARTAN-HCTZ 100-25 MG TAB) 1 Each Tablet, 1 TAB PO DAILY, #90 08/26/14 Discontinued Reported Medications Oxycodone Hcl/Acetaminophen (PERCOCET 5-325 MG TABLET) 1 Each Tablet, 1 EACH PO QID PRN for PAIN, TAB 10/31/17 Morphine Sulfate (MS CONTIN) 15 Mg Tablet.er, 15 MG PO BID 10/31/17 Linaclotide (LINZESS) 290 Mcg Capsule, 290 MCG PO QDAY, CAPSULE 10/31/17 Cyclobenzaprine Hcl (CYCLOBENZAPRINE HCL) 10 Mg Tablet, 5 MG PO TID PRN for SPASMS, #9 TAB 10/31/17 Trazodone Hcl (TRAZODONE HCL) 50 Mg Tablet, 50-100 MG PO QHS PRN for SLEEP 02/27/17 Gabapentin (GABAPENTIN) 300 Mg Capsule, 300 MG PO QDAY, CAPSULE 02/27/17 Past Medical/Surgical History The patient has a past medical and surgical history of DVT, hypertension, arthritis, back pain, wears glasses, hypothyroidism, bilateral knee replacements, cataract surgery, 2 major back surgeries. Reviewed Nurses Notes: Yes Hx Smoking: No Smoking Status: Never Smoker Exposure to Second Hand Smoke?: No Hx Substance Use Disorder: No Hx Alcohol Use: Yes (rare) Constitutional Vital Sign - Last 24 Hours 07/09/18 07/09/18 07/09/18 07/09/18 16:09 16:17 16:30 16:32 Temp 98.2 Pulse 77 78 Resp 16 B/P (MAP) 139/96 (110) 139/96 161/92 (115) Pulse Ox 94 93 O2 Delivery Room Air Room Air 07/09/18 07/09/18 07/09/18 07/09/18 17:00 17:02 17:07 17:30 Pulse 65 68 B/P (MAP) 147/82 (103) 127/80 (96) Pulse Ox 93 93 O2 Delivery Room Air 07/09/18 07/09/18 07/09/18 17:37 17:42 18:00 Pulse 65 64 B/P (MAP) 149/85 (106) Pulse Ox 94 93 O2 Delivery Room Air Physical Exam General Appearance: The patient is alert, has no immediate need for airway protection and no signs of toxicity. Eyes: Pupils equal and round no pallor or injection. ENT, Mouth: Mucous membranes are moist. Respiratory: There are no retractions, lungs are clear to auscultation. Cardiovascular: Regular rate and rhythm, no murmurs, clicks or rubs. Gastrointestinal: Abdomen is soft and non tender, no masses, bowel sounds normal. Neurological: Alert and oriented 4. Moving all extremity is. Following all commands. No focal neuro deficits. Skin: Warm and dry, with some redness to bilateral feet, no cellulitic infection. No rashes. Musculoskeletal: Right lower extremity larger than the left lower extremity. No pitting edema. No weeping. No pain. The right lower extremity is measuring 49 cm, left lower extremity is measuring 43.5 cm. Extremities are nontender, nonswollen and have full range of motion. DIFFERENTIAL DIAGNOSIS: After history and physical exam differential diagnosis was considered for DVT, dependent edema ingestive heart failure and sialitis. Medical Decision Making EKG/Imaging Imaging Location: [facility] Patient: Parish Juares : 1945 Visit/Account:[id number] Date of Sevice: 07/09/2018 VENOUS DOPP LOW RIGHT EXTREMIT ADDITIONAL PERTINENT HISTORY: Swelling. COMPARISON STUDIES: None. FINDINGS: Grayscale compression, duplex and color Doppler interrogation of the right lower extremity deep veins from common femoral vein to proximal calf was performed. The greater saphenous vein in the ipsilateral proximal thigh was evaluated using similar technique. Right lower extremity: Common femoral vein: Negative. Femoral vein: Negative. Deep femoral vein: Negative. Popliteal vein: Negative. Visualized deep calf veins Negative. Greater saphenous vein in the proximal thigh: Negative. Popliteal fossa: negative IMPRESSION: 1. No evidence of deep venous thrombosis involving the right lower extremity. Report Dictated By: Jake Milner MD at 07/09/2018 5:26 PM Report E-Signed By: Jake Milner MD at 07/09/2018 5:29 PM WSN:[id number] ED Course/Re-evaluation ED Course The patient was admitted to room. History is were obtained. Differential diagnoses were considered. An ultrasound of the right lower extremity was negative for DVT. I did review these results with the patient. I did tell the patient this could be secondary to dependent edema, we also discussed dietary habits, he has been eating processed food recently which does have increased sodium. I did recommend a dietary change, I also recommended following up with his primary care provider in the next 2 days for reevaluation of the right lower extremity. At which point he may consider diuresis. I did recommend keeping the foot elevated. I also recommended following up with Dr. Gillette the pharmacist as she can assist in Coumadin dosing as well as adjusting his medications. The patient expressed understanding and was discharged home. The patient was also encouraged to return to the ER for any other concerns or worsening symptoms. No signs of infectious process. Decision to Disposition Date: Jul 09, 2018 Decision to Disposition Time: 18:08 Depart Departure Latest Vital Signs Vital Signs Date Time Temp Pulse Resp B/P (MAP) Pulse Ox O2 Delivery O2 Flow Rate FiO2 07/09/18 18:00 149/85 (106) 07/09/18 17:42 64 93 Room Air 07/09/18 16:17 98.2 16 Impression: Primary Impression: Swelling of right lower extremity Condition: Improved Disposition: HOME OR SELF-CARE Referrals: MARIANA CARROLL (PCP) 2 Days ELISABETH GLILETTE PHARMD Patient Instructions: Leg Edema (ED) Additional Instructions: There is no evidence of a blood clot on ultra sound today. With all the medication changes and the sub-therapeutic INR I would recommend follow up with Mariana in 1-2 days, even consider follow up with Dr. Gillette, the pharmacist for evaluation of all your medications. Drink plenty of water. Get plenty of rest. There is no evidence of infection today, however if you notice anything else that is concerning please return to the ED or follow up with your PCP. MEETA MUSTAFA MANAGER CRISIS-BC Jul 09, 2018 16:12
[2018-07-09] MEDS ORDERED: OXYC10TA67 PO (16:26)
[2018-07-09] MEDS ORDERED: WARF5TAB23 PO (16:26)
[2018-07-09] MEDS ORDERED: TRAZ50TA34 PO (16:26)
[2018-07-09] MEDS ORDERED: CEFU250T11 PO (16:26)
[2018-07-09] MEDS ORDERED: MORP-20 PO (17:06)
--- NOTE | 2018-07-09 17:33 | RADIOLOGY IMAGING REPORT ---
FACILITY: [facility] PATIENT NAME: Parish Juares : 1945 MR: [id number] V: [id number] EXAM DATE: ORDERING PHYSICIAN: MEETA MUSTAFA TECHNOLOGIST: Location: [facility] [place] Patient: Parish Juares : 1945 Visit/Account:[id number] Date of Sevice: 07/09/2018 VENOUS DOPP LOW RIGHT EXTREMIT ADDITIONAL PERTINENT HISTORY: Swelling. COMPARISON STUDIES: None. FINDINGS: Grayscale compression, duplex and color Doppler interrogation of the right lower extremity deep veins from common femoral vein to proximal calf was performed. The greater saphenous vein in the ipsilater al proximal thigh was evaluated using similar technique. Right lower extremity: Common femoral vein: Negative. Femoral vein: Negative. Deep femoral vein: Negative. Popliteal vein: Negative. Visualized deep calf veins Negative. Greater saphenous vein in the proximal thigh: Negative. Popliteal fossa: negative IMPRESSION: 1. No evidence of deep venous thrombosis involving the right lower extremity. Report Dictated By: Jake Milner MD at 07/09/2018 5:26 PM Report E-Signed By: Jake Milner MD at 07/09/2018 5:29 PM WSN:[id number]
[2018-07-09 18:00] VITALS: BP 149/85
== END 2018-07-09 18:26 | disposition home or self-care (01) ==
LOC: ER 16:19
DX: M79.89 Other specified soft tissue disorders (principal); Z79.01 Long term (current) use of anticoagulants
CPT/HCPCS: 99284

== ENCOUNTER → 2018-08-01 | Outpatient (RCR) | payer MEDICARE ==
[2017-02-27 08:41] VITALS: BMI 40.7
--- NOTE | 2018-05-03 17:04 | PT PLAN OF CARE ---
Physician: CELESTE Faye Patient is being seen: 3x/Week Therapist: Renetta Michaels, PT, DPT, CLT Medical Diagnosis: Thoracic Compression Fracture, Spinal Surgery Treatment Diagnosis: Generalized Weakness, Spinal Surgery, Abnormality of Gait Date of Onset: 01/31/18 Date of Initial Evaluation: 01/31/18 Date patient was last seen: 05/03/18 Number of treatments: 27 Number of cancellations/No shows: 3 INTERVENTIONS: Manual Therapy/STM/MET Strengthening/condition Ice/Heat Range of Motion Spinal Stabilization Ultrasound Stretching Iontophoresis Neuromuscular Re-ed Closed Chain Program Electrical Stim Posture/Body mechanics Gait Trg/Balance Trg Biofeedback Home Exercise Program Mech./Manual Traction Therapeutic Activities Pelvic Floor GOALS: In 3 weeks pt will increase 6 minute walk to 3 laps with use of SPC for improved function with community and household ambulation and ADL's. MET In 6 weeks pt will improve B LE strength as tested by MMT to 4+/5 in all major muscle groups. (progressing) In 6 weeks pt will increase Oswestry Low Back Pain Disability Index Score to <10/50 for improved function with ADL's. Progressing In 6 weeks pt will increase 6 minute walk to 3 laps without use of AD for improved function with community and household ambulation and ADL's. MET PATIENT'S GOAL: Pt goals to be able to walk without AD and increase strength. Status of Patient's Goals: 2/4 MET, 2/4 Progressing Patient Compliance: Good Prognosis: Good Reasons for continuing therapy: Parish shows good progress with progressive strengthening as well as with functional mobility and endurance. Pt is now able to ambulate with good stability without any AD for a fair distance prior to fatigue on a flat surface. When ambulating up and down hills or stairs AD of SPC is still required for safety. Parish shows centralization of back pain but pain persists just below the level of the fusion on the L. Pain is improved with lumbar extension but is quick to return with any forward flexion at this time. Further PT to focus on gains in strength and stability as well as continue with pain reduction and core strength for maintenance. ROM: Hip Mobility: WFL excluding hip flexion with moderate restrictions. Lumbar mobility: Flexion: minimally restricted, ext: minimal-moderate restrictions Strength: LE MMT: Hip: Flexion:B 4+/5, Ext: B 5/5, Abd/Add: B 5/5. Knee: Flexion: B 5/5, Ext: B 4+/5, DF: B 5/5, PF: R 4+/5, L 4/5 Special Tests: Oswestry Low Back Disability Questionnaire: Gait: 6 Minute Walk Test: 3.8 [id number] feet with SPC (04/10/18), 4 laps without AD (05/03/18) If you have any questions, please contact me at [phone]. Thank you, Renetta Michaels, PT, DPT, CLT MTDD
--- NOTE | 2018-06-14 06:58 | PT PLAN OF CARE ---
Physician: CELESTE Faye Patient is being seen: 2-3x/Week Therapist: Renetta Michaels, PT, DPT, CLT Medical Diagnosis: Thoracic Compression Fracture, Spinal Surgery Treatment Diagnosis: Generalized Weakness, Spinal Surgery, Abnormality of Gait Date of Onset: 01/31/18 Date of Initial Evaluation: 01/31/18 Date patient was last seen: 06/13/18 Number of treatments: 38 Number of cancellations/No shows: 4 INTERVENTIONS: Manual Therapy/STM/MET Strengthening/condition Ice/Heat Range of Motion Spinal Stabilization Ultrasound Stretching Iontophoresis Neuromuscular Re-ed Closed Chain Program Electrical Stim Posture/Body mechanics Gait Trg/Balance Trg Biofeedback Home Exercise Program Mech./Manual Traction Therapeutic Activities Pelvic Floor GOALS: In 3 weeks pt will increase 6 minute walk to 3 laps with use of SPC for improved function with community and household ambulation and ADL's. MET In 6 weeks pt will improve B LE strength as tested by MMT to 4+/5 in all major muscle groups. (progressing) In 6 weeks pt will increase Oswestry Low Back Pain Disability Index Score to <10/50 for improved function with ADL's. Progressing In 6 weeks pt will increase 6 minute walk to 3 laps without use of AD for improved function with community and household ambulation and ADL's. MET PATIENT'S GOAL: Pt goals to be able to walk without AD and increase strength. Status of Patient's Goals: 2/4 MET, 2/4 Progressing Patient Compliance: Good Prognosis: Good Reasons for continuing therapy: Parish continues to show improved progress with strengthening and endurance with reported increased function in ADL's. Pt still relies on SPC for longer distance stability resulting in improved gait mechanics. Pt remains to occasionally have lumbar "stiffness" in the morning which creates restrictions to mobility and function. Further PT to focus on community ambulation with SPC as well as without and continue to monitor and treat lumbar pain. ROM: Hip Mobility: WFL excluding hip flexion with moderate restrictions. Lumbar mobility: Flexion: minimally restricted, ext: minimal-moderate restrictions Strength: LE MMT: Hip: Flexion:B 5-/5, Ext: B 5/5, Abd/Add: B 5/5. Knee: Flexion: B 5/5, Ext: B 5/5, DF: B 5/5, PF: B 4+/5, Special Tests: Oswestry Low Back Disability Questionnaire: Gait: 6 Minute Walk Test: 5 [id number] feet with GLL=820 meters (06/14/18), 4 laps without AD (05/03/18) If you have any questions, please contact me at [phone]. Thank you, Renetta Michaels, PT, DPT, CLT MTDD
[~2018-08-01] MED LIST changes: +CEFU250T11 PO; +MORP-20 PO; +OXYC10TA67 PO
== END ==
LOC: PT 05-03 15:15
PROVIDERS: ATTEND Nurse Practitioner Family
DX: M54.14 Radiculopathy, thoracic region (principal); M86.9 Osteomyelitis, unspecified; S22.000A Wedge compression fracture of unspecified thoracic vertebra, initial encounter for closed fracture; T14.8XXA Other injury of unspecified body region, initial encounter; Z98.890 Other specified postprocedural states; Z86.19 Personal history of other infectious and parasitic diseases; M54.16 Radiculopathy, lumbar region; R53.1 Weakness; R26.89 Other abnormalities of gait and mobility; X58.XXXA Exposure to other specified factors, initial encounter

== ENCOUNTER 2018-10-10 15:15 | Outpatient (RCR) | payer MEDICARE ==
[2017-02-27 08:41] VITALS: BMI 40.7
--- NOTE | 2018-08-07 07:47 | PT PLAN OF CARE ---
Physician: CELESTE Faye Patient is being seen: 2x/Week Therapist: Renetta Michaels, PT, DPT, CLT Medical Diagnosis: Thoracic Compression Fracture, Spinal Surgery Treatment Diagnosis: Generalized Weakness, Spinal Surgery, Abnormality of Gait Date of Onset: 01/31/18 Date of Initial Evaluation: 01/31/18 Date patient was last seen: 08/06/18 Number of treatments: 48 Number of cancellations/No shows: 6 INTERVENTIONS: Manual Therapy/STM/MET Strengthening/condition Ice/Heat Range of Motion Spinal Stabilization Ultrasound Stretching Iontophoresis Neuromuscular Re-ed Closed Chain Program Electrical Stim Posture/Body mechanics Gait Trg/Balance Trg Biofeedback Home Exercise Program Mech./Manual Traction Therapeutic Activities Pelvic Floor GOALS: In 3 weeks pt will increase 6 minute walk to 3 laps with use of SPC for improved function with community and household ambulation and ADL's. MET In 6 weeks pt will improve B LE strength as tested by MMT to 4+/5 in all major muscle groups. MET In 6 weeks pt will increase Oswestry Low Back Pain Disability Index Score to <10/50 for improved function with ADL's. Progressing In 6 weeks pt will increase 6 minute walk to 3 laps without use of AD for improved function with community and household ambulation and ADL's. MET PATIENT'S GOAL: Pt goals to be able to walk without AD and increase strength. Status of Patient's Goals: 2/4 MET, 2/4 Progressing Patient Compliance: Good Prognosis: Good Reasons for continuing therapy: Parish showed slight regression of progress over the last month with onset of increased LBP below the level of fusion. Pain shows improvement with continued progress in LE strength, stability and endurance though deficits remain present. Pt remains to have moderate-minimal pain which is reduced each treatment session. Pt remains to have edema in the L LE with poor compliance with lowered sodium diet recommended by MD. Additionally pt has poor compliance with home exercise program with frequently performing other heavy duty activities at home including working on his car and performing heavy lifting resulting in occasional increased pain. Further PT is indicated to improve lingering deficits in lumbar pain and regain function with ambulation and endurance for ADL's. ROM: Hip Mobility: WFL excluding hip flexion with moderate restrictions. Lumbar mobility: Flexion: minimally restricted, ext: minimal-moderate restrictions Strength: LE MMT: Hip: Flexion:B 5/5, Ext: B 5/5, Abd/Add: B 5/. Knee: Flexion: B 5/, Ext: B 5/5, DF: B 5/5, PF: B 4+/5, Special Tests: Oswestry Low Back Disability Questionnaire: Gait: 6 Minute Walk Test: 5 hotu=876 feet with QDS=043 meters (06/14/18), 4 laps without AD (05/03/18) If you have any questions, please contact me at [phone]. Thank you, Renetta Michaels, PT, DPT, CLT MTDD
== END 2018-10-10 18:00 | disposition home or self-care (01) ==
LOC: PT 15:15
PROVIDERS: ATTEND Nurse Practitioner Family
DX: M86.9 Osteomyelitis, unspecified (principal); M54.14 Radiculopathy, thoracic region; S22.000A Wedge compression fracture of unspecified thoracic vertebra, initial encounter for closed fracture; T14.8XXA Other injury of unspecified body region, initial encounter; R26.89 Other abnormalities of gait and mobility; M62.81 Muscle weakness (generalized)

== ENCOUNTER → 2019-01-29 | Outpatient (CLI) | payer MEDICARE ==
[2017-02-27 08:41] VITALS: BMI 40.7
--- NOTE | 2019-01-29 13:00 | RADIOLOGY IMAGING REPORT ---
FACILITY: [facility] [place] PATIENT NAME: Parish Juares : 1945 MR: [id number] V: [id number] EXAM DATE: ORDERING PHYSICIAN: MARIAH RECINOS TECHNOLOGIST: Location: [facility] Patient: Parish Juares : 1945 Visit/Account:[id number] Date of Sevice: 01/29/2019 Renal ultrasound. HISTORY: Frequency, hematuria. COMPARISON: CT scan 08/25/2012. Right renal length: 12.1 cm. Right renal cortical thickness: Normal. Right renal echogenicity: Normal. Right hydronephrosis: No. Right perinephric fluid collections: No. Right renal calcifications: No. Left renal length: 12.6 cm. Left renal cortical thickness: Normal. Left renal echogenicity: Normal Left hydronephrosis: No. Left perinephric fluid collections: No. Left renal calcifications: No. Bladder prevoid volume: 74 ml. Bladder post void volume: Nine ml. Right ureteral jet: Present. Left ureteral jet: Present x2. The ureters are obscured. The abdominal aorta and inferior vena cava are partially obscured. Several cysts measuring up to 1.8 cm in diameter are present in the lower pole of the right kidney. The kid neys are slightly lobulated bilaterally. Two ureteral jets are present on the left. IMPRESSION: Duplicated left ureter. Right renal cysts. Otherwise negative kidneys. The source of hematuria is not identified by this means. Report Dictated By: Sukhjinder Clement MD at 01/29/2019 12:49 PM Report E-Signed By: Sukhjinder Clement MD at 01/29/2019 12:55 PM WSN:[email or web address]
== END ==
LOC: US 00:32
PROVIDERS: ATTEND Urology
DX: N28.1 Cyst of kidney, acquired (principal); Q62.5 Duplication of ureter
CPT/HCPCS: 76705

== ENCOUNTER → 2019-04-22 | Outpatient (CLI) | payer MEDICARE ==
[2017-02-27 08:41] VITALS: BMI 40.7
[~2019-04-22] MED LIST changes: +LOSA-44 PO; +OMEG-23 PO; -TRAZ50TA34 PO; +TRAZ50TA52 PO
== END ==
LOC: US 04-03 00:38
PROVIDERS: ATTEND Internal Medicine Interventional Cardiology
DX: I51.7 Cardiomegaly (principal)
CPT/HCPCS: 93306